=== PATIENT | female | born 1980 | race Hispanic/Latino ===

== ENCOUNTER 2022-09-22 21:38 | Emergency (ER) | payer OTHER ==
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
[2022-09-22] MEDS ORDERED: FLUORESCEIN SODIUM 1 MG/WRAP ONE ×2 (22:02→22:19)
[2022-09-22] MEDS ORDERED: TETRACAINE HCL 0.5% 4ML OPTH ONE ×2 (22:02→22:19)
--- NOTE | 2022-09-22 22:42 | ER ---
Nurse's Notes [facility] Name: Lucina Mota Age: 42 yrs Sex: Female : 1980 Arrival Date: 09/22/2022 Time: 21:41 Bed 26 Private MD: Diagnosis: Unspecified conjunctivitis Presentation: 09/22 22:00 Chief complaint: Patient states: I had a massage on Tuesday and they used some aroma kd3 therapy and it got really close to my face and my left eye got red and inflamed and painful. I can still see and I have antibiotic drops but they aren't working. it is sensitive to the light. Coronavirus screen: Vaccine status: Patient reports being unvaccinated. Ebola Screen: No symptoms or risks identified at this time. Mechanism of Injury: eye irritant. The patient denies any loss of vision. Initial Sepsis Screen: Does the patient meet any 2 criteria? No. Patient's initial sepsis screen is negative. Does the patient have a suspected source of infection? No. Patient's initial sepsis screen is negative. Risk Assessment: Do you want to hurt yourself or someone else? Patient reports no desire to harm self or others. Onset of symptoms was September 22, 2022. 22:00 Method Of Arrival: Ambulatory kd3 22:00 Acuity: ANTONETTE 3 kd3 Triage Assessment: 22:04 General: Appears in no apparent distress. Behavior is calm, cooperative. Pain: kd3 Complains of pain in left eye. EENT: Eyes redness. Neuro: Level of Consciousness is awake, alert, obeys commands, Oriented to person, place, time, situation. 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 - Social history:: Smoking status: unknown. Screenin:05 Abuse screen: Denies threats or abuse. Denies injuries from another. Nutritional kd3 screening: No deficits noted. Nutritional screening: No deficits noted. Tuberculosis screening: No symptoms or risk factors identified. Fall Risk None identified. Assessment: 22:00 General: Appears in no apparent distress. Behavior is calm, cooperative, Received care kb3 of pt from VIOLETA ramsey x4. Pt reports left eye redness with irritation, excessive tearing, light sensitivity, and yellow discharge x2 days. Pt received rx for gentamycin eye drops x2 days with no relief. . 22:00 EENT: Sclera/Cornea are reddened in outer aspect of conjuctiva of left eye, iris of kb3 left eye and inner aspect of conjunctiva of left eye. Vital Signs: 22:00 BP 122 / 90; Pulse 78; Resp 18; Temp 98.8(O); Pulse Ox 100% ; Weight 67.13 kg; Height 4 kd3 ft. 11 in. (149.86 cm); Pain 8/10; 23:00 BP 117 / 78; Pulse 71; Resp 18; Pulse Ox 99% ; kb3 22:00 Body Mass Index 29.89 (67.13 kg, 149.86 cm) kd3 Visual Acuity: 22:00 Left Eye Visual acuity 20/25, Pupil size 4 mm, Normal, Brisk; Right Eye Visual acuity kb3 20/25, Pupil size 4 mm, Normal, Brisk; Both Eyes Visual acuity 20/20; Without Lenses; ED Course: 21:41 Patient arrived in ED. bp1 21:54 Riya Nunes FNP-C [facility] kb 21:54 Theron River MD is Attending Physician. kb 22:00 Francine Mariscal, RN is Primary Nurse. kb3 22:00 Patient has correct armband on for positive identification. Bed in low position. Call kb3 light in reach. Warm blanket given. 22:00 No provider procedures requiring assistance completed. Patient did not have IV access kb3 during this emergency room visit. 22:04 Triage completed. kd3 22:05 Arm band placed on right wrist. kd3 22:44 Dominic Rosen MD is Referral Physician. kb Administered Medications: 22:36 Drug: Tetracaine Drops 0.5 % 1 drops Route: Ophthalmic; Site: left eye; kb3 Medication: 22:00 VIS not applicable for this client. kb3 Outcome: 22:42 Discharge ordered by . kb 23:00 Discharged to home ambulatory, with family. kb3 23:00 Condition: stable 23:00 Discharge instructions given to patient, Instructed on discharge instructions, follow up and referral plans. medication usage, Demonstrated understanding of instructions, follow-up care, medications, Prescriptions given X 1. 23:07 Patient left the ED. kb3 23:07 Discharged to home ambulatory. em6 Signatures: Riya Nunes FNP-C FNP-Chikis Mann Kyli RN RN kd3 Rosalba Dan RN RN em6 Francine Mariscal RN RN kb3
--- NOTE | 2022-09-22 22:42 | EDPHYS ---
Physician Documentation [facility] Name: Lucina Mota Age: 42 yrs Sex: Female : 1980 Arrival Date: 09/22/2022 Time: 21:41 Bed 26 Private MD: ED Physician Theron River HPI: 09/23 00:09 This 42 yrs old Female presents to ER via Ambulatory with complaints of Eye kb Problem, Eye Pain. 00:09 The patient is experiencing matting or discharge, pain, redness, The patient sustained kb None. to the left eye. Onset: The symptoms/episode began/occurred 3 day(s) ago. Duration: the symptoms are continuous. Aggravated by nothing. Alleviated by nothing. Associated signs and symptoms: Pertinent positives: None. Pertinent negatives: None. Patient does not utilize any form of vision correction. Severity of symptoms: At their worst the symptoms were moderate in the emergency department the symptoms are unchanged. The patient has not experienced similar symptoms in the past. The patient has not recently seen a physician. Pt reports she had a massage on Tuesday where they put something with aroma therapy over her eyes. Tuesday she woke up with redness, pain and green discharge to left eye. 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 - Social history:: Smoking status: unknown. ROS: 09/23 00:07 Constitutional: Negative for fever, chills, and weight loss. kb Eyes: Positive for discharge, matting, pain, redness. All other systems are negative. Exam: 00:07 Constitutional: This is a well developed, well nourished patient who is awake, alert, kb and in no acute distress. Head/Face: Normocephalic, atraumatic. Cardiovascular: Regular rate and rhythm with a normal S1 and S2. No gallops, murmurs, or rubs. No pulse deficits. Respiratory: Respirations even and unlabored. No increased work of breathing. Talking in full sentences Skin: Warm, dry with normal turgor. Normal color. MS/ Extremity: Pulses equal, no cyanosis. Neurovascular intact. Full, normal range of motion. Neuro: Awake and alert, GCS 15, oriented to person, place, time, and situation. Moves all extremities. Normal gait. 00:07 Eyes: Periorbital structures: appear normal, Pupils: equal, round, and reactive to light and accomodation, Extraocular movements: intact throughout, Conjunctiva: exudate, in the left eye, injected, in the left eye, Intraocular pressure: left eye = 19mmHg. Vital Signs: 09/22 22:00 BP 122 / 90; Pulse 78; Resp 18; Temp 98.8(O); Pulse Ox 100% ; Weight 67.13 kg; Height 4 kd3 ft. 11 in. (149.86 cm); Pain 8/10; 23:00 BP 117 / 78; Pulse 71; Resp 18; Pulse Ox 99% ; kb3 22:00 Body Mass Index 29.89 (67.13 kg, 149.86 cm) kd3 Visual Acuity: 22:00 Left Eye Visual acuity 20/25, Pupil size 4 mm, Normal, Brisk; Right Eye Visual acuity kb3 20/25, Pupil size 4 mm, Normal, Brisk; Both Eyes Visual acuity 20/20; Without Lenses; MDM: 21:54 Patient medically screened. kb 09/23 00:07 Data reviewed: vital signs, nurses notes. Data interpreted: Pulse oximetry: on room air kb is 99 %. Interpretation: normal. 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 09/22 22:00 Order name: Eye Tray; Complete Time: 22:18 kb 09/22 22:00 Order name: Fluoresene Opth strip; Complete Time: 22:18 kb 09/22 22:00 Order name: Visual Acuity; Complete Time: 22:45 kb Administered Medications: 09/22 22:36 Drug: Tetracaine Drops 0.5 % 1 drops Route: Ophthalmic; Site: left eye; kb3 Disposition: 09/23 03:14 Co-signature as Attending Physician, Theron River MD I agree with the assessment and rt plan of care. Disposition Summary: 09/22/22 22:42 Discharge Ordered Location: Home kb Condition: Stable kb Diagnosis - Unspecified conjunctivitis kb Followup: kb - With: Emergency Department - When: As needed - Reason: Worsening of condition Followup: kb - With: Private Physician - When: 2 - 3 days - Reason: Recheck today's complaints, Continuance of care, Re-evaluation by your physician Followup: kb - With: Dominic Rosen MD - When: Tomorrow - Reason: Discharge Instructions: - Discharge Summary Sheet kb - Bacterial Conjunctivitis, Adult, [id number] kb Forms: - Medication Reconciliation Form kb - Thank You Letter kb - Antibiotic Education kb - Prescription Opioid Use kb Prescriptions: - Bacitracin 500 unit/gram Ophthalmic Ointment - instill 0.5 inch by OPHTHALMIC route every 6 hours for 7 days; 3.5 tube; kb Refills: 0, Product Selection Permitted - [id number] 3.5-400-10,000 hu-mpep-eolb/g Ophthalmic ointment - apply 1 application by OPHTHALMIC route 4 times per day for 7 days; 1 tube; kb Refills: 0, Product Selection Permitted Signatures: Riya Nunes, JULIO-C JULIO-Jessenia Sutherland RN RN kd3 Francine Mariscal, ADRY RN kb3 Theron River MD MD rt
[2022-09-22 23:15] VITALS: TEMP 98.8
[2022-09-22 23:20] VITALS: BP 117/78; O2SAT 99
== END 2022-09-22 23:07 | disposition home or self-care (01) ==
LOC: ER 21:38
DX: H10.9 Unspecified conjunctivitis (principal)
CPT/HCPCS: 99283

== ENCOUNTER 2022-12-02 08:36 | Emergency (ER) | payer OTHER ==
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
--- NOTE | 2022-12-02 09:10 | ER ---
Nurse's Notes [facility] Name: Lucina Mota Age: 42 yrs Sex: Female : 1980 Arrival Date: 12/02/2022 Time: 08:39 Bed 9 Private MD: Harry Herrera Diagnosis: Torticollis;Sprain of joints and ligaments of other parts of neck Presentation: 12/02 09:00 Chief complaint: Patient states: left sided neck pain since starting an exercise iw program X 5 days. Coronavirus screen: At this time, the client does not indicate any symptoms associated with coronavirus-19. Ebola Screen: Patient negative for fever greater than or equal to 101.5 degrees Fahrenheit, and additional compatible Ebola Virus Disease symptoms Patient denies exposure to infectious person. Patient denies travel to an Ebola-affected area in the 21 days before illness onset. No symptoms or risks identified at this time. Initial Sepsis Screen: Does the patient meet any 2 criteria? No. Patient's initial sepsis screen is negative. Does the patient have a suspected source of infection? No. Patient's initial sepsis screen is negative. Risk Assessment: Do you want to hurt yourself or someone else? Patient reports no desire to harm self or others. Onset of symptoms was November 27, 2022. 09:00 Method Of Arrival: Ambulatory iw 09:00 Acuity: ANTONETTE 4 iw Historical: - Allergies: 09:00 No Known Allergies; iw - Home Meds: 09:00 None [Active]; iw - PMHx: 09:00 None; iw Assessment: 10:00 Reassessment: Patient is alert, oriented x 3, equal unlabored respirations, skin aa5 warm/dry/pink. Vital Signs: 09:00 BP 114 / 83; Pulse 91; Resp 16; Temp 97.7; Pulse Ox 98% on R/A; Weight 68.04 kg; Height iw 4 ft. 11 in. (149.86 cm); Pain 9/10; 09:00 Body Mass Index 30.30 (68.04 kg, 149.86 cm) iw ED Course: 08:39 Patient arrived in ED. as 08:39 Harry Herrera MD is Private Physician. as 08:46 Antoine Bob MD is Attending Physician. jr11 09:01 Triage completed. iw 09:01 Arm band placed on. iw 09:16 Cece Sterling, RN is Primary Nurse. iw 10:00 No provider procedures requiring assistance completed. Patient did not have IV access aa5 during this emergency room visit. Administered Medications: 09:38 Drug: Ketorolac 60 mg Route: IM; Site: right gluteus; aa5 10:00 Follow up: Response: No adverse reaction aa5 Outcome: : Discharge ordered by . jr11 10: Discharged to home ambulatory, with family. aa5 10:00 Condition: stable 10:00 Discharge instructions given to patient, Instructed on discharge instructions, follow up and referral plans. medication usage, Demonstrated understanding of instructions, follow-up care, medications, Prescriptions given X 2. 10:02 Patient left the ED. aa5 Signatures: Laura Dan as Cece Sterling, RN RN Loretta Mixon RN RN aa5 Antoine Bob MD MD jr11 Corrections: (The following items were deleted from the chart) : 09:00 Chief complaint: Patient states: back pain X 5 days iw iw : 09:00 Acuity: ANTONETTE 3 iw iw : 09:00 Pulse 91bpm; Resp 16bpm; Pulse Ox 98% RA; Temp 97.7F; iw iw
--- NOTE | 2022-12-02 09:10 | EDPHYS ---
Physician Documentation [facility] Name: Lucina Mota Age: 42 yrs Sex: Female : 1980 Arrival Date: 12/02/2022 Time: 08:39 Bed 9 Private MD: Harry Herrera ED Physician Antoine Bob HPI: 12/02 09:05 This 42 yrs old Female presents to ER via Ambulatory with complaints of Back jr11 Pain. 09:05 Patient is a 42-year-old that started a new exercise program about 5 days ago and now jr11 with tightness to the left base of her neck going anteriorly worse with movement of her neck rotation and flexion, denies any fever, no meningeal complaints no altered mental status. Pain is worse with movement and also palpation of her musculature.. Denies any trauma or falls. Historical: - Allergies: 09:00 No Known Allergies; iw - Home Meds: 09:00 None [Active]; iw - PMHx: 09:00 None; iw ROS: 09:05 All other systems are negative. jr11 Exam: 09:05 Constitutional: This is a well developed, well nourished patient who is awake, alert, jr11 and in no acute distress. Head/Face: Normocephalic, atraumatic. Eyes: Extra-ocular motions intact. Lids and lashes normal. Conjunctiva and sclera are non-icteric and not injected. Cornea within normal limits. Periorbital areas with no swelling, redness, or edema. Neck: TTP L lateral neck, SCM muscle, FROM but painful, N/V intact distally including LUE Chest/axilla: Normal chest wall appearance and motion. Nontender with no deformity. No lesions are appreciated. Cardiovascular: Regular rate and rhythm with a normal S1 and S2. No gallops, murmurs, or rubs. Normal PMI, no JVD. No pulse deficits. Abdomen/GI: Soft, non-tender, with normal bowel sounds. No distension or tympany. No guarding or rebound. No evidence of tenderness throughout. Back: No spinal tenderness. No costovertebral tenderness. Full range of motion. Skin: Warm, dry with normal turgor. Normal color with no rashes, no lesions, and no evidence of cellulitis. MS/ Extremity: Pulses equal, no cyanosis. Neurovascular intact. Full, normal range of motion. Neuro: Awake and alert, GCS 15, oriented to person, place, time, and situation. No gross motor or sensory deficits. Vital Signs: 09:00 BP 114 / 83; Pulse 91; Resp 16; Temp 97.7; Pulse Ox 98% on R/A; Weight 68.04 kg; Height iw 4 ft. 11 in. (149.86 cm); Pain 9/10; 09:00 Body Mass Index 30.30 (68.04 kg, 149.86 cm) iw MDM: 09:04 Patient medically screened. jr11 09:05 Differential diagnosis: Patient is a 42-year-old with concern for sprain strain jr11 torticollis after starting exercise program. No fever no chills no concern for meningitis at this point, will give medicine for her pain, and follow-up PCP. Data reviewed: vital signs, nurses notes. I considered the following discharge prescriptions or medication management in the emergency department I discussed and recommended Over The Counter medications, Pain Medications: At this time, prescription pain medications are not recommended, Medications were administered in the Emergency Department. See MAR. Test considered but Not performed: X-ray: no trauma, musc companent . Historians other than the Patient: Spouse/Significant Other: pt only took 1 tab ibu. Care significantly affected by the following Social Determinants of Health: inability to get PCP appointment, get adequate f/u . ED course: I visited patient prior to discharge and reviewed pertinent lab and/or radiology findings noted above with patient. Plan for discharge reviewed and answered all questions. Patient appears well and is safe for discharge at this time. Patient instructed to return to ED if symptoms suddenly worsen or persist. Strong return precautions given with patient expressing acceptance and understanding of all instructions provided.. Administered Medications: 09:38 Drug: Ketorolac 60 mg Route: IM; Site: right gluteus; aa5 10:00 Follow up: Response: No adverse reaction aa5 Disposition Summary: 12/02/22 09:09 Discharge Ordered Location: Home jr11 Condition: Stable jr11 Diagnosis - Torticollis jr11 - Sprain of joints and ligaments of other parts of neck jr11 Discharge Instructions: - Discharge Summary Sheet jr11 - Acute Torticollis, Adult jr11 - Neck Exercises jr11 Forms: - Medication Reconciliation Form jr11 - Thank You Letter jr11 - Antibiotic Education jr11 - Prescription Opioid Use jr11 Prescriptions: - methocarbamol 750 mg Oral tablet - take 1 tablet by ORAL route every 6 hours; 20 tablet; Refills: 0, Product jr11 Selection Permitted - Ibuprofen 600 mg Oral Tablet - take 1 tablet by ORAL route every 6 hours As needed take with food; 30 tablet; jr11 Refills: 0, Product Selection Permitted Signatures: Cece Sterling RN RN iw Loretta Mixon RN RN aa5 Antoine Bob MD MD jr11
[2022-12-02] MEDS ORDERED: KETOROLAC 30 MG/ML INJ ONE (09:39)
[2022-12-02 10:06] VITALS: BP 114/83; TEMP 97.7; O2SAT 98
== END 2022-12-02 10:02 | disposition home or self-care (01) ==
LOC: ER 08:36
DX: S13.8XXA Sprain of joints and ligaments of other parts of neck, initial encounter (principal); M43.6 Torticollis
CPT/HCPCS: 96372; 99283

== ENCOUNTER 2024-11-15 22:30 | Emergency (ER) | payer OTHER ==
[2024-11-15 23:11] LABS: Absolute Basophils 0.1 K/uL (0-0.5); Absolute Eosinophils 0.2 K/uL (0-0.5); Absolute Lymphocytes (CBC) 3.2 K/uL (0.7-4.9); Absolute Monocytes 0.8 K/uL (0.1-1.3); Absolute Neutrophil 6.7 K/uL (1.8-8.0); Basophils % 0.5 % (0-1.3); Eosinophils % 1.8 % (0-4.4); Hemoglobin 14.1 g/dL (12.0-15.0); Lymphocytes % 29.6 % (15.3-44.8); MCHC 33.5 g/dL (32.0-36.0); MCV 83.5 fL (80-100); Monocytes % 7.1 % (3.3-12.3); Nucleated Red Blood Cells % 0.1 % (0-0); Platelets 287 thou/uL (152-406); RBC Red Blood Cell Count 5.03 M/uL (3.86-4.86)
[2024-11-15 23:16] LABS: PT Prothrombin Time 11.1 SECONDS (9.4-12.5); PTT, Activated Partial Thromb 31.4 SECONDS (24.3-36.9); Protime INR 0.99
[2024-11-15 23:34] LABS: ALT/SGPT 51 U/L (13-56); Albumin 3.7 g/dL (3.4-5.0); Albumin/Globulin Ratio 0.9 (1.1-1.8); Alkaline Phosphatase 110 U/L (45-117); Anion Gap 7.9 mEq/L (5.0-15.0); BUN Blood Urea Nitrogen 11 mg/dL (7-18); Bicarbonate 27 mEq/L (21-32); Bilirubin Total 0.6 mg/dL (0.2-1.0); Globulin 4.2 g/dL (2.3-3.5); Glomerular Filtration Rate 111 ml/min (=/>90); Glucose Level 170 mg/dL (74-106); Protein, Total 7.9 g/dL (6.4-8.2); Sodium Level 132 mEq/L (136-145); Troponin High Sensitivity 3.2 pg/mL (<58.9)
[2024-11-15 23:39] LABS: AST/SGOT 13 U/L (15-37); Bilirubin Direct < 0.2 mg/dL (0-0.2); Bilirubin Indirect, Calculated 0.4 mg/dL (0.2-0.8); Potassium 3.9 mEq/L (3.5-5.1)
--- NOTE | 2024-11-15 23:53 | EDPHYS ---
Physician Documentation [facility] Name: Lucina Mota Age: 44 yrs Sex: Female : 1980 Arrival Date: 11/15/2024 Time: 22:30 Bed 4 Private MD: ED Physician Tomas Escalona HPI: 11/15 22:47 This 44 yrs old Female presents to ER via Wheelchair with complaints of S/S of cp Possible Stroke. 22:47 The patient's problem is reported as paresthesias, tongue and lips, weakness, in the cp left upper extremity, in the left side of face. Onset: The symptoms/episode began/occurred this afternoon about noon. Duration: The episode is continuous. Patient's baseline: Neuro: alert and fully oriented, Motor: no deficits, Ambulation: walks without assistance, Speech: normal. 22:47 Associated signs and symptoms: Pertinent negatives: abdominal pain, chest pain, cp headache, palpitations, vision changes. 22:47 Severity of symptoms: in the emergency department the symptoms are unchanged despite cp home interventions. Patient reports PMHX significant for pre-diabetes. No current treatment with medications. 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 - Infectious Disease History:: Denies. - Social history:: Smoking status: Patient denies any tobacco usage or history of. ROS: 22:50 Constitutional: Negative for body aches, chills, fever, poor PO intake, cp 22:50 Neuro: Positive for numbness, weakness, of the mouth and tongue and left side of face cp and left arm and left leg, 22:50 Constitutional: history per hpi cp 22:50 Cardiovascular: Negative for chest pain, edema, palpitations, 22:50 Respiratory: Negative for cough, shortness of breath, wheezing, 22:50 Abdomen/GI: Negative for abdominal pain, vomiting, diarrhea, constipation, 22:50 All other systems are negative, cp Exam: 22:55 Constitutional: The patient appears in no acute distress, alert, awake, cp non-diaphoretic, non-toxic, well developed, well nourished, 22:55 Head/face: Noted is mild facial droop left side of face. 22:55 Eyes: Periorbital structures: appear normal, Pupils: equal, round, and reactive to light and accomodation, Extraocular movements: intact throughout, Conjunctiva: normal, Sclera: no appreciated abnormality, Lids and lashes: appear normal, bilaterally, 22:55 ENT: External ear(s): are unremarkable, Nose: is normal, Mouth: Lips: moist, Oral mucosa: moist, Posterior pharynx: Airway: no evidence of obstruction, patent, 22:55 Neck: ROM/movement: is normal, is supple, without pain, no range of motions limitations, 22:55 Chest/axilla: Inspection: normal, 22:55 Cardiovascular: Rate: normal, Rhythm: regular, Edema: is not appreciated, JVD: is not appreciated, 22:55 Respiratory: the patient does not display signs of respiratory distress, Respirations: normal, no use of accessory muscles, no retractions, labored breathing, is not present, Breath sounds: are clear throughout, no decreased breath sounds, no stridor, no wheezing, 22:55 Abdomen/GI: Inspection: abdomen appears normal, 22:55 Neuro: Orientation: to person, place \T\ time. Mentation: is normal, Cerebellar function: Romberg testing is negative, normal finger to nose testing, heel to ken testing is normal, Motor: moves all fours, Sensation: light touch is decreased in the face and left arm, Gait: is steady, 23:38 ECG was reviewed by the Attending Physician. cp Vital Signs: 22:45 BP 135 / 89; Pulse 86; Resp 16; Temp 99(O); Pulse Ox 98% on R/A; Weight 73.48 kg (M); jb4 Height 4 ft. 11 in. (R); 11/16 01:35 al5 11/15 22:45 Body Mass Index 32.72 (73.48 kg, 149.86 cm) jb4 01:35 see code stroke checklist packet for vital signs al5 NIH Stroke Scale Scores: 11/15 23:00 NIHSS Score: 2 al5 23:15 NIHSS Score: 2 cp MDM: 22:47 Medical Screening Exam initiated cp 23:00 Differential diagnosis: CVA, TIA, metabolic disorder, drug effects, crane's palsy. 23:00 ED course: patient is not a tnk candidate as onset of symptoms was greater than 4 hours. 23:45 Data reviewed: vital signs, nurses notes, lab test result(s), EKG, radiologic studies, cp CT scan, plain films, I have discussed the patient's presentation/case with the attending Emergency Department Physician; and as a result, I will admit patient. 23:45 I considered the following discharge prescriptions or medication management in the emergency department Medications were administered in the Emergency Department. See MAR. Independent interpretation of the following test(s) in the Emergency Department EKG: See my EKG interpretation above. Counseling: I had a detailed discussion with the patient and/or guardian regarding the historical points, exam findings, and any diagnostic results supporting the discharge/admit diagnosis, lab results, radiology results, the need for further work-up and treatment in the hospital. 23:49 Management of patient was discussed with the following: Director Biology: DR Guo who will consult and patient to be admitted to services of hospitalist, DR Casanova, after discussion. 11/16 01:09 ED course: Patient seen and evaluated by DR Casanova, hospitalist, for admission. Patient cp declines admission at this time and requesting discharge to home. Concern for an acute stroke, diabetes explained to patient and need for further testing. Patient understands risk of discharge. Recommendation to take baby aspirin daily. 11/15 22:50 Order name: Glucose, Ancillary Testing; Complete Time: 23:40 EDME 11/15 23:40 Interpretation: Reviewed. 11/15 22:53 Order name: Basic Metabolic Panel; Complete Time: 23:40 11/15 23:40 Interpretation: Normal except: NA 132; GLUC 170. 11/15 22:53 Order name: CBC with Diff; Complete Time: 23:40 11/15 23:40 Interpretation: Normal except: WBC 11.00; RBC 5.03. 11/15 22:53 Order name: Hepatic Function; Complete Time: 23:40 11/15 23:41 Interpretation: Reviewed. 11/15 22:53 Order name: High Sensitivity Troponin; Complete Time: 23:40 11/15 22:53 Order name: Magnesium; Complete Time: 23:40 11/15 22:53 Order name: Protime (+inr); Complete Time: 23:40 cp 11/15 22:53 Order name: Ptt, Activated; Complete Time: 23:40 cp 11/15 22:53 Order name: CT Head Angio cp 11/15 22:53 Order name: CT Neck Angio cp 11/15 22:53 Order name: CT Stroke Brain w/o Contrast cp 11/15 22:53 Order name: Stroke CXR 1 View cp 11/15 22:53 Order name: Accucheck; Complete Time: 23:03 cp 11/15 22:53 Order name: Cardiac monitoring; Complete Time: 23:41 cp 11/15 22:53 Order name: EKG - Nurse/Tech; Complete Time: 23:41 cp 11/15 22:53 Order name: IV Saline Lock; Complete Time: 23:41 cp 11/15 22:53 Order name: Labs collected and sent; Complete Time: 23:41 cp 11/15 22:53 Order name: NPO; Complete Time: 23:53 cp 11/15 22:53 Order name: O2 Per Protocol; Complete Time: 23:03 cp 11/15 22:53 Order name: O2 Sat Monitoring; Complete Time: 23:03 cp 11/15 22:53 Order name: Stroke Swallow Screen; Complete Time: 23:53 cp EC/09 23:38 Rate is 75 beats/min. Rhythm is regular. WA interval is normal. QRS interval is cp prolonged at 106 msec. QT interval is normal. T waves are Inverted in lead aVR. Interpreted by me. Reviewed by me. Administered Medications: 11/16 00:29 Drug: foLIC Acid IVPB 1 mg IVPB once Route: IVPB; Site: right antecubital; al5 01:32 Follow up: Response: No adverse reaction; IV Status: Completed infusion; IV Intake: al5 100ml 00:29 Drug: Aspirin PO Chewable Tablet 162 mg PO once Route: PO; al5 00:49 Follow up: Response: No adverse reaction al5 00:29 Drug: Clopidogrel PO 75 mg PO once Route: PO; al5 00:49 Follow up: Response: No adverse reaction al5 00:29 Drug: Atorvastatin PO 40 mg PO once Route: PO; al5 00:49 Follow up: Response: No adverse reaction al5 Point of Care Testing: Blood Glucose: 11/15 22:38 Blood Glucose: 190 mg/dL; al5 Ranges: Critical Glucose Levels:Adult <50 mg/dl or >400 mg/dl <40 mg/dl or >180 mg/dl Disposition: 11/16 05:43 Co-signature as Attending Physician, Tomas Escalona MD I agree with the assessment sp4 and plan of care. I reviewed the patient's care provided by Advanced Practice Provider \T\ agree w/ the diagnosis \T\ care plan. I personally saw the pt \T\ performed a substantive portion of the visit, incldng all aspects of the (History/Exam/Medical Decision Making). 21:09 Chart complete. cp Disposition Summary: 11/16/24 01:14 Discharge Ordered Notes: Location: Home(11/16/24 01:14) cp Problem: new(11/16/24 01:14) cp Symptoms: have improved(11/16/24 01:14) cp Condition: Stable(11/16/24 01:14) cp Diagnosis - Weakness - left side of face and left arm and left leg(11/16/24 01:14) cp - Paresthesia of skin - tongue and lips and left side of face(11/16/24 01:14) cp - Hyperglycemia, unspecified cp Followup: cp - With: Royal Guo MD - When: 2 - 3 days - Reason: Recheck today's complaints Discharge Instructions: - Discharge Summary Sheet cp - Hyperglycemia cp - Paresthesia cp - Weakness cp - Aspirin and Your Heart cp Forms: - Medication Reconciliation Form cp - Antibiotic Education cp - Prescription Opioid Use cp - Patient Portal Instructions cp - Leadership Thank You Letter cp Critical care time excluding procedures: 21:09 Critical care time: Bedside Care: 5 minutes, Consultation: 25 minutes. Total time: 30 cp minutes NIH Stroke Scale - NIH Stroke Score Date: 11/15/2024 Time: 23:00 Total Score = 2 10. Dysarthria (speech clarity - read or repeat words) - 0(Normal) 11. Extinction and Inattention (visual/tactile/auditory/spatial/personal) - 0(No abnormality) 1a. Level of Consciousness (LOC) - 0(Alert) 1b. Level of Consciousness (LOC) (Month \T\ Age) - 0(Both) 1c. LOC Commands (Open \T\ Closes Eyes/Supervisor Wall Mirror Department) - 0(Both) 2. Best Gaze (Lateral Gaze Paresis) - 0(Normal) 3. Visual Field Loss - 0(No visual loss) 4. Facial Palsy - 1(Minor Paralysis) 5a. Left Arm: Motor (10-second hold) - 0(No drift) 5b. Right Arm: Motor (10-second hold) - 0(No drift) 6a. Left Leg: Motor (5-second hold - always test supine) - 0(No drift) 6b. Right Leg: Motor (5-second hold - always test supine) - 0(No drift) 7. Limb Ataxia (finger/nose \T\ heel/ken - test with eyes open) - 0(Absent) 8. Sensory Loss (pinprick arms/legs/face) - 1(Mild to moderate loss) 9. Best Language: Aphasia (description/naming/reading) - 0(No aphasia) Initials: al5 NIH Stroke Scale - NIH Stroke Score Date: 11/15/2024 Time: 23:15 Total Score = 2 10. Dysarthria (speech clarity - read or repeat words) - 0(Normal) 11. Extinction and Inattention (visual/tactile/auditory/spatial/personal) - 0(No abnormality) 1a. Level of Consciousness (LOC) - 0(Alert) 1b. Level of Consciousness (LOC) (Month \T\ Age) - 0(Both) 1c. LOC Commands (Open \T\ Closes Eyes/Supervisor Wall Mirror Department) - 0(Both) 2. Best Gaze (Lateral Gaze Paresis) - 0(Normal) 3. Visual Field Loss - 0(No visual loss) 4. Facial Palsy - 1(Minor Paralysis) 5a. Left Arm: Motor (10-second hold) - 0(No drift) 5b. Right Arm: Motor (10-second hold) - 0(No drift) 6a. Left Leg: Motor (5-second hold - always test supine) - 0(No drift) 6b. Right Leg: Motor (5-second hold - always test supine) - 0(No drift) 7. Limb Ataxia (finger/nose \T\ heel/ken - test with eyes open) - 0(Absent) 8. Sensory Loss (pinprick arms/legs/face) - 1(Mild to moderate loss) 9. Best Language: Aphasia (description/naming/reading) - 0(No aphasia) Initials: cp Signatures: Dispatcher [employer] EDMS Page, Baron, PA PA cp Anderson, Michele, RN RN jb4 Tomas Escalona MD MD sp4 Alba Terry [facility] Viky Ellis, ADRY RN al5 Corrections: (The following items were deleted from the chart) 11/15 22:53 22:53 BASIC METABOLIC PANEL+C.LAB.BRZ ordered. EDMS EDMS 22:53 22:53 CBC+H.LAB.BRZ ordered. EDMS EDMS 22:53 22:53 HEPATIC FUNCTION+C.LAB.BRZ ordered. EDMS EDMS 22:53 22:53 Troponin High Sensitivity+C.LAB.BRZ ordered. EDMS EDMS 22:53 22:53 MAGNESIUM+C.LAB.BRZ ordered. EDMS EDMS 22:53 22:53 PROTIME (+INR)+COAG.LAB.BRZ ordered. EDMS EDMS 22:53 22:53 PTT, ACTIVATED+COAG.LAB.BRZ ordered. EDMS EDMS 22:54 22:53 Head Angio+CT.RAD.BRZ ordered. EDMS EDMS 22:54 22:54 Neck Angio+CT.RAD.BRZ ordered. EDMS EDMS 22:54 22:54 CT-STROKE BRAIN W/O CONTRAST+CT.RAD.BRZ ordered. EDMS EDMS 22:54 22:54 Chest Single View+RAD.RAD.BRZ ordered. EDMS EDMS 11/16 00:11/15 23:52 cp kmf 11/16 00:11/15 23:52 Inpatient Admission cp cp 11/16 00:11/15 23:52 Girish Casanova cp cp 11/16 00:11/15 23:52 Telemetry/MedSurg (Inpatient) cp cp 11/16 00:11/15 23:52 Stable cp cp 11/16 00:11/15 23:52 new cp cp 11/16 00:11/15 23:52 have improved cp cp 11/16 00:11/15 23:52 Standard cp cp 11/16 00:12 11/15 23:52 Weakness cp cp 11/16 00:11/15 23:52 Paresthesia of skin cp cp 11/16 00:12 :09 204 kmf cp 11/15 22:58 Constitutional: The patient appears in no acute distress, alert, cp awake, non-diaphoretic, non-toxic, well developed, well nourished, cp 11/16 22:58 Head/face: Noted is mild facial droop left side of face. cp cp 11/16 22:58 Eyes: Periorbital structures: appear normal, Pupils: equal, round, cp and reactive to light and accomodation, Extraocular movements: intact throughout, Conjunctiva: normal, Sclera: no appreciated abnormality, Lids and lashes: appear normal, bilaterally, cp 11/16 22:58 ENT: External ear(s): are unremarkable, Nose: is normal, Mouth: cp Lips: moist, Oral mucosa: moist, Posterior pharynx: Airway: no evidence of obstruction, patent, cp 11/16 22:58 Neck: ROM/movement: is normal, is supple, without pain, no range of cp motions limitations, cp 11/16 20:11/15 22:58 Chest/axilla: Inspection: normal, cp cp 11/16 22:58 Cardiovascular: Rate: normal, Rhythm: regular, Edema: is not cp appreciated, JVD: is not appreciated, cp 11/16 22:58 Respiratory: the patient does not display signs of respiratory cp distress, Respirations: normal, no use of accessory muscles, no retractions, labored breathing, is not present, Breath sounds: are clear throughout, no decreased breath sounds, no stridor, no wheezing, cp 11/16 20:11/15 22:58 Abdomen/GI: Inspection: abdomen appears normal, cp cp 11/16 22:58 Neuro: Orientation: to person, place \T\ time. Mentation: is normal, cp Cerebellar function: Romberg testing is negative, normal finger to nose testing, heel to ken testing is normal, Motor: moves all fours, Sensation: light touch is decreased in the face and left arm, Gait: is steady, cp
--- NOTE | 2024-11-15 23:53 | ER ---
Nurse's Notes [facility] Name: Lucina Mota Age: 44 yrs Sex: Female : 1980 Arrival Date: 11/15/2024 Time: 22:30 Bed 4 Private MD: Diagnosis: Weakness-left side of face and left arm and left leg;Paresthesia of skin-tongue and lips and left side of face;Hyperglycemia, unspecified Presentation: 11/15 22:45 Chief complaint: Patient states: I started having weakness on the left side of my face jb4 and in my left arm at 12pm. I cannot close my left eye well and when I do it does not want to open. Coronavirus screen: At this time, the client does not indicate any symptoms associated with coronavirus-19. Ebola Screen: No symptoms or risks identified at this time. Initial Sepsis Screen: Does the patient meet any 2 criteria? No. Patient's initial sepsis screen is negative. Does the patient have a suspected source of infection? No. Patient's initial sepsis screen is negative. Risk Assessment: Do you want to hurt yourself or someone else? Patient reports no desire to harm self or others. Onset of symptoms was November 15, 2024. Transition of care: patient was not received from another setting of care. 22:45 Method Of Arrival: Wheelchair jb4 22:45 Acuity: ANTONETTE 2 jb4 22:48 An acute neurological deficit is present. The charge nurse has been notified. jb4 23:54 Pre-hospital glucose is not applicable to this patient. al5 Triage Assessment: 23:00 The onset of the patients symptoms was November 15, 2024 at 12:00. General: Appears in al5 no apparent distress. comfortable, Behavior is calm, cooperative. 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 - Infectious Disease History:: Denies. - Social history:: Smoking status: Patient denies any tobacco usage or history of. Screenin:00 [facility] ED Fall Risk Assessment (Adult) History of falling in the last 3 months, al5 including since admission No falls in past 3 months (0 pts) Confusion or Disorientation No (0 pts) Intoxicated or Sedated No (0 pts) Impaired Gait No (0 pts) Mobility Assist Device Used No (0 pt) Altered Elimination No (0 pt) Score/Fall Risk Level 0 - 2 = Low Risk Oriented to surroundings, Maintained a safe environment, Hourly rounding (assess needs \T\ fall precautionary measures) done. 23:00 Abuse screen: Denies threats or abuse. Denies injuries from another. Nutritional al5 screening: No deficits noted. Tuberculosis screening: No symptoms or risk factors identified. Assessment: 23:00 VAN Scoring: Arm Drift: Patients demonstrates NO arm weakness. Patient is VAN Negative. al5 Visual Disturbance: No visual disturbance noted. Aphasia: No aphasia noted. Neglect: No neglect noted. TNKase (Tenecteplase) Screening: Not Applicable. 23:00 General: Appears in no apparent distress. comfortable, Behavior is calm, cooperative. al5 General: Appears in no apparent distress. comfortable, Behavior is calm, cooperative. Pain: Denies pain. Pain: Denies pain. 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 Full function Gait is steady, Speech is normal, slight droop on L side when patient smiles. Reports paresthesias L side of face since noon today. Cardiovascular: Capillary refill < 3 seconds Patient's skin is warm and dry. Rhythm is sinus rhythm. Respiratory: Airway is patent Respiratory effort is even, unlabored, Respiratory pattern is regular, symmetrical. GI: No signs and/or symptoms were reported involving the gastrointestinal system. : No signs and/or symptoms were reported regarding the genitourinary system. EENT: No signs and/or symptoms were reported regarding the EENT system. Derm: Skin is intact, is healthy with good turgor, Skin is pink, warm \T\ dry. normal. Musculoskeletal: No signs and/or symptoms reported regarding the musculoskeletal system. 23:28 Amberg Swallow Protocol Exclusion Criteria: Exclusion Criteria Result: Proceed Brief al5 Cognitive Screen What is your name? Normal, Where are you right now? Normal, What year is it? Normal. Oral Mechanism Examination Facial Symmetry: Normal, Motion: Normal, Lip Closure: Normal, Oral Mechanism Result: Normal. 3 oz Water Swallow Challenge: Pt able to drink all water without stopping, coughing, choking or throat clearing: Yes Result: PASS MD Notified: Baron ADAM. 11/16 00:21 Reassessment: Patient appears in no apparent distress at this time. No changes from al5 previously documented assessment. Patient and/or family updated on plan of care and expected duration. Pain level reassessed. Patient is alert, oriented x 3, equal unlabored respirations, skin warm/dry/pink. 01:33 Reassessment: Patient appears in no apparent distress at this time. No changes from al5 previously documented assessment. Patient and/or family updated on plan of care and expected duration. Pain level reassessed. Patient is alert, oriented x 3, equal unlabored respirations, skin warm/dry/pink. patient was to be admitted, but patient wanted to go home due to her child being at home. MD aware and gave informed discharge to the patient. referrals given for neurology to follow up. patient verbalized understanding. Vital Signs: 11/15 22:45 BP 135 / 89; Pulse 86; Resp 16; Temp 99(O); Pulse Ox 98% on R/A; Weight 73.48 kg (M); jb4 Height 4 ft. 11 in. (R); 11/16 01:35 al5 11/15 22:45 Body Mass Index 32.72 (73.48 kg, 149.86 cm) jb4 01:35 see code stroke checklist packet for vital signs al5 NIH Stroke Scale Scores: 11/15 23:00 NIHSS Score: 2 al5 23:15 NIHSS Score: 2 cp ED Course: 22:44 Patient arrived in ED. gm2 22:44 Inserted saline lock: 22 gauge in right antecubital area, using aseptic technique. al5 Blood collected. Flushed with 10 mL NS. 22:47 Baron Sauer PA is PHCP. cp 22:47 Tomas Escalona MD is Attending Physician. cp 22:47 Triage completed. jb4 22:47 Arm band placed on right wrist. jb4 22:59 Viky Ellis, ADRY is Primary Nurse. al5 23:00 Patient has correct armband on for positive identification. Bed in low position. Call al5 light in reach. Side rails up X2. Provided Education on: plan of care. 23:00 No provider procedures requiring assistance completed. al5 23:02 CT Head Angio In Process Unspecified. EDMS 23:02 CT Neck Angio In Process Unspecified. EDMS 23:02 CT Stroke Brain w/o Contrast In Process Unspecified. EDMS 23:40 Stroke CXR 1 View In Process Unspecified. EDMS 23:50 Girish Casanova MD is Hospitalizing Provider. cp 11/16 01:12 Royal Guo MD is Referral Physician. cp 01:37 IV discontinued, intact, bleeding controlled, No redness/swelling at site. Pressure al5 dressing applied. Administered Medications: 00:29 Drug: foLIC Acid IVPB 1 mg IVPB once Route: IVPB; Site: right antecubital; al5 01:32 Follow up: Response: No adverse reaction; IV Status: Completed infusion; IV Intake: al5 100ml 00:29 Drug: Aspirin PO Chewable Tablet 162 mg PO once Route: PO; al5 00:49 Follow up: Response: No adverse reaction al5 00:29 Drug: Clopidogrel PO 75 mg PO once Route: PO; al5 00:49 Follow up: Response: No adverse reaction al5 00:29 Drug: Atorvastatin PO 40 mg PO once Route: PO; al5 00:49 Follow up: Response: No adverse reaction al5 Medication: 11/15 23:00 VIS not applicable for this client. al5 Point of Care Testing: Blood Glucose: 22:38 Blood Glucose: 190 mg/dL; al5 Ranges: Intake: 11/16 01:32 IV: 100ml; Total: 100ml. al5 Outcome: 11/15 23:52 Decision to Hospitalize by Provider. cp 11/16 01:14 Discharge ordered by . cp 01:37 Discharged to home ambulatory, with significant other, al5 01:37 Condition: good 01:37 Discharge instructions given to patient, significant other, Instructed on discharge instructions, follow up and referral plans. Demonstrated understanding of instructions, follow-up care, 01:37 Patient left the ED. al5 NIH Stroke Scale - NIH Stroke Score Date: 11/15/2024 Time: 23:00 Total Score = 2 10. Dysarthria (speech clarity - read or repeat words) - 0(Normal) 11. Extinction and Inattention (visual/tactile/auditory/spatial/personal) - 0(No abnormality) 1a. Level of Consciousness (LOC) - 0(Alert) 1b. Level of Consciousness (LOC) (Month \T\ Age) - 0(Both) 1c. LOC Commands (Open \T\ Closes Eyes/Money Room Supervisor) - 0(Both) 2. Best Gaze (Lateral Gaze Paresis) - 0(Normal) 3. Visual Field Loss - 0(No visual loss) 4. Facial Palsy - 1(Minor Paralysis) 5a. Left Arm: Motor (10-second hold) - 0(No drift) 5b. Right Arm: Motor (10-second hold) - 0(No drift) 6a. Left Leg: Motor (5-second hold - always test supine) - 0(No drift) 6b. Right Leg: Motor (5-second hold - always test supine) - 0(No drift) 7. Limb Ataxia (finger/nose \T\ heel/ken - test with eyes open) - 0(Absent) 8. Sensory Loss (pinprick arms/legs/face) - 1(Mild to moderate loss) 9. Best Language: Aphasia (description/naming/reading) - 0(No aphasia) Initials: al5 NIH Stroke Scale - NIH Stroke Score Date: 11/15/2024 Time: 23:15 Total Score = 2 10. Dysarthria (speech clarity - read or repeat words) - 0(Normal) 11. Extinction and Inattention (visual/tactile/auditory/spatial/personal) - 0(No abnormality) 1a. Level of Consciousness (LOC) - 0(Alert) 1b. Level of Consciousness (LOC) (Month \T\ Age) - 0(Both) 1c. LOC Commands (Open \T\ Closes Eyes/Money Room Supervisor) - 0(Both) 2. Best Gaze (Lateral Gaze Paresis) - 0(Normal) 3. Visual Field Loss - 0(No visual loss) 4. Facial Palsy - 1(Minor Paralysis) 5a. Left Arm: Motor (10-second hold) - 0(No drift) 5b. Right Arm: Motor (10-second hold) - 0(No drift) 6a. Left Leg: Motor (5-second hold - always test supine) - 0(No drift) 6b. Right Leg: Motor (5-second hold - always test supine) - 0(No drift) 7. Limb Ataxia (finger/nose \T\ heel/ken - test with eyes open) - 0(Absent) 8. Sensory Loss (pinprick arms/legs/face) - 1(Mild to moderate loss) 9. Best Language: Aphasia (description/naming/reading) - 0(No aphasia) Initials: cp Signatures: Dispatcher [employer] EDMS Baron Sauer PA PA cp Michele Bocanegra, ADRY RN jb4 Halle Rubio 2 Viky Ellis RN RN al5 Corrections: (The following items were deleted from the chart) 01:35 01:33 Reassessment: Patient appears in no apparent distress at this time. No al5 changes from previously documented assessment. Patient and/or family updated on plan of care and expected duration. Pain level reassessed. Patient is alert, oriented x 3, equal unlabored respirations, skin warm/dry/pink. al5
[2024-11-16] MEDS ORDERED: CLOPIDOGREL 75 MG TABLET ONE (00:19)
[2024-11-16] MEDS ORDERED: ASPIRIN 81 MG CHEWABLE TABLET ONE (00:19)
[2024-11-16] MEDS ORDERED: ATORVASTATIN 40 MG TAB ONE (00:19)
[2024-11-16] MEDS ORDERED: FOLIC ACID 5 MG/ML VIAL ONE (00:20)
[2024-11-16] MEDS ORDERED: NA CHLORIDE 0.9% 50 ML ONE (00:21)
--- NOTE | 2024-11-16 00:53 | RAD REPORT ---
EXAM DESCRIPTION: Ct Stroke Brain Wo Cont CLINICAL HISTORY: STROKE ALERT COMPARISON: None Available. TECHNIQUE: Multiple helical axial tomographic images were obtained of the head without intravenous contrast. Thi s exam was performed according to our departmental dose-optimization program, which includes automated exposure control, adjustment of the mA and/or kV according to patient size and/or use of it erative reconstruction technique. FINDINGS: There is no acute intracranial hemorrhage. There is a 0.8 cm hypodensity in the left basal ganglia re gion (series 201, image 12). No mass. No midline shift. No ventriculomegaly. Smith-white matter differentiation is maintained. Paranasal sinuses are clear. Mastoid air cells and middle ear spaces are clear. Orbits and orbital co ntents are unremarkable. Osseous structures are unremarkable. Surrounding soft tissues are unremarkable. IMPRESSION: 1. No evidence of an acute intracranial hemorrhage. 2. Small hypodensity in the left basal ganglia region which could represent an age-indeterminate infa rct versus prominent perivascular space. THIS REPORT CONTAINS FINDINGS THAT MAY BE CRITICAL TO PATIENT CARE: The findings were verbally discus sed via telephone conference with Baron ADAM by Dr. Tolliver at 2319 hours central time on November 15, 2024. The results were acknowledged and understood. Electronically signed by: Bolivar Tolliver MD 11/15/2024 11:22 PM [facility] Due to temporary technical issues with the PACS/[employer] reporting system, reports are being karin d by the in-house radiologist without review as a courtesy to ensure prompt reporting the interpreting radiologist is fully responsible for the content of the report. Transcribed Date/Time: 11/16/2024 12:53 AM
--- NOTE | 2024-11-16 00:54 | RAD REPORT ---
EXAM: CTA Head with Contrast 11/15/2024 at 11: 01 PM HISTORY: Numbness, Weakness COMPARISON: CT Head/Brain Without Contrast 11/15/2024 at 10:52 PM TECHNIQUE: Head CTA axial images acquired with IV contrast. Coronal and sagittal CTA MIPs and MPRs cr eated. Exam performed according to departmental dose-optimization program which includes automated exposure control, adjustment of mA and/or kV according to patient size, and/or use of iterative recon struction technique. FINDINGS: Both intracranial vertebral, basilar, and both posterior cerebral arteries unremarkable. Both intracranial internal carotid, both middle cerebral, anterior communicating, and both anterior c erebral arteries unremarkable. No evidence of large intracranial arterial occlusion, aneurysm, or AVM. IMPRESSION: Unremarkable CTA Head with Contrast Electronically signed by: Musa Billings MD 11/15/2024 11:32 PM [facility] Due to temporary technical issues with the PACS/[employer] reporting system, reports are being karin d by the in-house radiologist without review as a courtesy to ensure prompt reporting the interpreting radiologist is fully responsible for the content of the report. Transcribed Date/Time: 11/16/2024 12:54 AM
--- NOTE | 2024-11-16 00:54 | RAD REPORT ---
EXAM: CTA Neck with Contrast HISTORY: Numbness COMPARISON: None TECHNIQUE: Neck CTA axial images acquired with IV contrast. Coronal and sagittal CTA MIPs and MPRs cr eated. Exam performed according to departmental dose-optimization program which includes automated exposure control, adjustment of mA and/or kV according to patient size, and/or use of iterative recon struction technique. FINDINGS: Aortic arch unremarkable. Both vertebral arteries unremarkable. Both carotid arteries unremarkable. No significant carotid artery stenosis (by NASCET criteria). Small right thyroid lobe. IMPRESSION: Unremarkable CTA Neck with Contrast Electronically signed by: Musa Billings MD 11/15/2024 11:36 PM [employer] Due to temporary technical issues with the PACS/[employer] reporting system, reports are being karin d by the in-house radiologist without review as a courtesy to ensure prompt reporting the interpreting radiologist is fully responsible for the content of the report. Transcribed Date/Time: 11/16/2024 12:54 AM
[2024-11-16 01:51] VITALS: BP 135/89; TEMP 99; O2SAT 98
--- NOTE | 2024-11-16 05:54 | RAD REPORT ---
EXAM: XR Chest, 1 View CLINICAL HISTORY: weakness TECHNIQUE: Frontal view of the chest. COMPARISON: No relevant prior studies available. FINDINGS: Lungs: Unremarkable. No consolidation. Pleural space: Unremarkable. No pneumothorax. Heart: Unremarkable. No cardiomegaly. Mediastinum: Unremarkable. Normal mediastinal contour. Bones/joints: Unremarkable. No acute fracture. IMPRESSION: No acute disease. Electronically signed by: Jose Miguel Vanessa MD 11/16/2024 12:18 AM [facility] Due to temporary technical issues with the PACS/[employer] reporting system, reports are being karin d by the in-house radiologist without review as a courtesy to ensure prompt reporting the interpreting radiologist is fully responsible for the content of the report. Transcribed Date/Time: 11/16/2024 5:54 AM
--- NOTE | 2024-11-19 10:53 | EKG ---
Test Date: 2024-11-15 Test Time: 23:31:37 Holistic Pulser: JESSICA MEASUREMENT RESULTS: Intervals: Rate: 75 MI: 146 QRSD: 106 QT: 414 QTc: 462 [place]: P: 65 MI: 146 QRS: -65 T: 32 INTERPRETIVE STATEMENTS: Normal sinus rhythm Left anterior fascicular block Abnormal ECG No previous ECG available for comparison Electronically Signed On 11-19-24 10:50:18 PRINCIPAL SCIENTIST by Alfonso Darden
== END 2024-11-16 01:37 | disposition home or self-care (01) ==
LOC: ER 22:30
DX: R53.1 Weakness (principal); R20.2 Paresthesia of skin; R73.9 Hyperglycemia, unspecified
CPT/HCPCS: 96365; 93005; 85025; 80048; 36415; 83735; 85610; 82947; 80076; 85730; 84484; 70496; 70498; 70450; 71045; 99285; Q9967